=== PATIENT | male | born 1955 | race Caucasian/White ===

== ENCOUNTER 2017-06-19 09:53 | Day surgery (SDC) | payer OTHER ==
[2017-06-19] MEDS ORDERED: PROPOFOL 40 ML (11:33)
== END 2017-06-19 15:16 | disposition home or self-care (01) ==
LOC: GIL 09:53
DX: Z12.11 Encounter for screening for malignant neoplasm of colon (principal); I10 Essential (primary) hypertension
CPT/HCPCS: 45378